=== PATIENT | male | born 1965 | race Caucasian/White ===

== ENCOUNTER 2018-07-13 08:49 | Emergency (ER) | payer OTHER ==
[~2018-07-13] VITALS: Ht 180.3 cm; Wt 99.8 kg
[2018-07-13 09:37] LABS: BASOPHILS ABSOLUTE AUTO 0.07 K/mm3 (0.00-0.23); BASOPHILS PERCENT AUTO 1 % (0-2); EOSINOPHILS ABSOLUTE AUTO 0.26 K/mm3 (0.00-0.68); EOSINOPHILS PERCENT AUTO 4 % (0-6); Hematocrit 44.9 % (37.0-53.0); Hemoglobin 15.3 g/dL (13.5-17.5); IMMATURE GRAN ABSOLUTE AUTO 0.07 K/mm3 (0.00-0.10); IMMATURE GRAN PERCENT AUTO 1 % (0-1); LYMPHOCYTES ABSOLUTE AUTO 2.53 K/mm3 (0.84-5.20); LYMPHOCYTES PERCENT AUTO 35 % (21-46); MONOCYTES ABSOLUTE AUTO 0.73 K/mm3 (0.16-1.47); MONOCYTES PERCENT AUTO 10 % (4-13); Mean Corpuscular HGB 32.1 pg (26.0-34.0); Mean Corpuscular HGB Conc 34.1 g/dL (31.5-36.5); Mean Corpuscular Volume 94 fL (80-100); Mean Platelet Volume 10.2 fL (9.1-12.4); NEUTROPHILS PERCENT AUTO 49 % (41-73); Platelet Count 206 K/mm3 (150-400); RDW Coefficient Variation 12.4 % (11.7-14.2); Red Blood Cell Count 4.77 M/mm3 (4.30-5.90); White Blood Cell Count 7.16 K/mm3 (4.00-11.30)
[2018-07-13 09:52] LABS: Alanine Aminotransfer (ALT/SGP 41 U/L (12-78); Albumin/Globulin Ratio 1.1 (0.8-1.8); Alk Phos 87 U/L (50-136); Anion Gap 11 mmol/L (6-16); Aspartate Aminotrans (AST/SGOT 48 U/L (12-37); Bilirubin, Total 0.6 mg/dL (0.1-1.0); Blood Urea Nitrogen 20 mg/dL (8-24); Bun/Creatinine Ratio 20.3 (12.0-20.0); CO2, Blood 21 mmol/L (21-32); Calcium, Blood 8.9 mg/dL (8.5-10.1); Chloride, Blood 108 mmol/L (98-108); Creatinine, Blood 0.98 mg/dL (0.60-1.20); Globulin, Blood 3.5 g/dL (2.2-4.0); Glomerular Filtration Rate >60 (60-); Glucose, Blood 140 mg/dL (70-99); Potassium, Blood 4.6 mmol/L (3.5-5.5); Sodium, Blood 140 mmol/L (136-145); Total Protein, Blood 7.5 g/dL (6.4-8.2); Troponin I <0.015 ng/mL (0.000-0.040)
== END 2018-07-13 13:01 | disposition short-term general hospital (02) ==
LOC: ER 08:49
PROVIDERS: Physician Assistant
DX: S06.6X9A Traumatic subarachnoid hemorrhage with loss of consciousness of unspecified duration, initial encounter (principal); S02.19XA Other fracture of base of skull, initial encounter for closed fracture; Z87.891 Personal history of nicotine dependence; X58.XXXA Exposure to other specified factors, initial encounter; Y92.513 Shop (commercial) as the place of occurrence of the external cause
CPT/HCPCS: 36415; 70450; 70496; 72125; 80053; 84484; 85025; 93005; 93010; 96374; 96375; 96376; 99285-25; J1170; J2405; J2550; J7030; Q9967

== ENCOUNTER → 2019-05-18 | Outpatient (CLI) | payer OTHER | LOC: EFM RAD 10:41 | DX: M25.562 Pain in left knee (principal) | CPT/HCPCS: 73565 ==

== ENCOUNTER → 2020-04-29 | Outpatient (CLI) | payer OTHER ==
[2020-05-01 14:59] LABS: CORONAVIRUS (COVID19) CSH-NRL Negative (Negative)
== END | disposition home or self-care (01) ==
LOC: LAB SHORT 16:05
PROVIDERS: Physician Assistant Medical
DX: R05 Cough (principal); Z20.828 Contact with and (suspected) exposure to other viral communicable diseases
CPT/HCPCS: U0003

== ENCOUNTER 2020-11-24 07:28 | Day surgery (SDC) | payer OTHER ==
[~2020-11-24] VITALS: Wt 200.0 kg
[~2020-11-24 07:28] MED LIST: ASPI325 PO; ATOR40TA PO; CYAN1000I PO; Crestor40 MG PO; FLOMAX0.4 MG PO; OMEP20ER PO; OXYM.05NI; Ranitidine HCl150 M1 PO; [UNRECOGNIZED DRUG - CODE] PO
[2020-11-24] MEDS ORDERED: MELA3 PO (08:51)
--- NOTE | 2020-11-24 11:50 | NUR ---
PATIENT ARRIVED TO [facility] RECOVERY ROOM A&O. LEFT CHEST PACER IMPLANT SITE SOFT AND NONTENDER. DRESSING DRY AND INTACT. DENIES DISCOMFORT. TOLERATED PROCEDURE WELL.
--- NOTE | 2020-11-24 12:33 | NUR ---
PATIENT ATE LUNCH. STSTES THAT THE PACER SITE IS A "LITTLE" SORE. SITE REMAINS SOFT AND NO SWELLING. DRESSING DRY AND INTACT.
--- NOTE | 2020-11-24 13:48 | NUR ---
PT RETURNED FROM XRAY AFTER 2-V XRAY. LACW PACEMAKER SITE SOFT WITH NO HEMATOMA, NO BLEEDING AND INTACT DRESSING. MID-CHEST LINQ EXPLANT SITE SOFT WITH NO HEMATOMA, NO BLEEDING AND INTACT DRESSING. LINQ SITE IS SORE. CALL LIGHT IN REACH. PT DENIES CHEST PAIN.
--- NOTE | 2020-11-24 16:10 | NUR ---
PT SECOND ROUND OF ANTIBIOTICS COMPLETED. IV DC'D. CATH INTACT. PRESSURE DSG IN PLACE. NADN. L SIDED CHEST WALL REMAINS CLEAR. NO BLEEDING NOTED. VSS. PT DRESSES SELF WITHOUT DIFF. VERBALIZES UNDERSTANDING WRITTEN AND VERBAL ORDERS. PT DC TO HOME VIA WC BY S/O
== END 2020-11-24 16:38 | disposition home or self-care (01) ==
LOC: MHTC 07:28
DX: I44.2 Atrioventricular block, complete (principal); Z45.09 Encounter for adjustment and management of other cardiac device
CPT/HCPCS: 33208; 71046; 76937; 93005; 93010; 99152; 99153; C1781; C1785; C1894; C1898; J0690; J1644; J2250; J3010; J7030; J7040; J7050

== ENCOUNTER 2021-01-07 16:31 | Inpatient (IN) | payer OTHER ==
[~2021-01-07] VITALS: Ht 177.8 cm; Wt 99.8 kg
[~2021-01-07 16:31] MED LIST changes: -ASPI325 PO; +ASPI325EC PO; +MELA3 PO
[2021-01-07 17:22] LABS: BASOPHILS ABSOLUTE AUTO 0.07 K/mm3 (0.00-0.23); BASOPHILS PERCENT AUTO 1 % (0-2); EOSINOPHILS ABSOLUTE AUTO 0.25 K/mm3 (0.00-0.68); EOSINOPHILS PERCENT AUTO 4 % (0-6); Hematocrit 39.4 % (37.0-53.0); Hemoglobin 13.6 g/dL (13.5-17.5); IMMATURE GRAN ABSOLUTE AUTO 0.01 K/mm3 (0.00-0.10); IMMATURE GRAN PERCENT AUTO 0 % (0-1); LYMPHOCYTES ABSOLUTE AUTO 1.62 K/mm3 (0.84-5.20); LYMPHOCYTES PERCENT AUTO 26 % (21-46); MONOCYTES ABSOLUTE AUTO 0.47 K/mm3 (0.16-1.47); MONOCYTES PERCENT AUTO 8 % (4-13); Mean Corpuscular HGB 31.9 pg (26.0-34.0); Mean Corpuscular HGB Conc 34.5 g/dL (31.5-36.5); Mean Corpuscular Volume 93 fL (80-100); Mean Platelet Volume 9.7 fL (9.1-12.4); NEUTROPHILS ABSOLUTE AUTO 3.73 K/mm3 (1.96-9.15); NEUTROPHILS PERCENT AUTO 61 % (41-73); Platelet Count 191 K/mm3 (150-400); RDW Coefficient Variation 12.7 % (11.7-14.2); RDW Standard Deviation 43.4 fL (35.1-46.3); Red Blood Cell Count 4.26 M/mm3 (4.30-5.90); White Blood Cell Count 6.15 K/mm3 (4.00-11.30)
[2021-01-07 18:02] LABS: Alanine Aminotransfer (ALT/SGP 50 U/L (12-78); Albumin, Blood 4.2 g/dL (3.4-5.0); Albumin/Globulin Ratio 1.4 (0.8-1.8); Alk Phos 99 U/L (50-136); Anion Gap 5 mmol/L (6-16); Aspartate Aminotrans (AST/SGOT 37 U/L (12-37); Bilirubin, Total 0.4 mg/dL (0.1-1.0); Blood Urea Nitrogen 23 mg/dL (8-24); CO2, Blood 23 mmol/L (21-32); Chloride, Blood 112 mmol/L (98-108); Glomerular Filtration Rate >60 (60-); Glucose, Blood 150 mg/dL (70-99); Sodium, Blood 140 mmol/L (136-145); Total Protein, Blood 7.2 g/dL (6.4-8.2)
[2021-01-07] MEDS ORDERED: ROSUVASTATIN CA40 MG PO (18:28)
[2021-01-07] MEDS ORDERED: NEURONTIN300 MG PO (18:29)
[2021-01-08 05:54] LABS: BASOPHILS ABSOLUTE AUTO 0.04 K/mm3 (0.00-0.23); BASOPHILS PERCENT AUTO 1 % (0-2); EOSINOPHILS ABSOLUTE AUTO 0.23 K/mm3 (0.00-0.68); EOSINOPHILS PERCENT AUTO 5 % (0-6); Hematocrit 39.2 % (37.0-53.0); Hemoglobin 13.4 g/dL (13.5-17.5); IMMATURE GRAN ABSOLUTE AUTO 0.02 K/mm3 (0.00-0.10); IMMATURE GRAN PERCENT AUTO 0 % (0-1); LYMPHOCYTES ABSOLUTE AUTO 1.44 K/mm3 (0.84-5.20); LYMPHOCYTES PERCENT AUTO 30 % (21-46); MONOCYTES ABSOLUTE AUTO 0.45 K/mm3 (0.16-1.47); MONOCYTES PERCENT AUTO 9 % (4-13); Mean Corpuscular HGB Conc 34.2 g/dL (31.5-36.5); Mean Corpuscular Volume 94 fL (80-100); Mean Platelet Volume 9.7 fL (9.1-12.4); NEUTROPHILS ABSOLUTE AUTO 2.59 K/mm3 (1.96-9.15); NEUTROPHILS PERCENT AUTO 54 % (41-73); Platelet Count 161 K/mm3 (150-400); RDW Coefficient Variation 12.6 % (11.7-14.2); RDW Standard Deviation 43.1 fL (35.1-46.3); Red Blood Cell Count 4.19 M/mm3 (4.30-5.90); White Blood Cell Count 4.77 K/mm3 (4.00-11.30)
[2021-01-08 06:28] LABS: Anion Gap 4 mmol/L (6-16); Blood Urea Nitrogen 22 mg/dL (8-24); Bun/Creatinine Ratio 21.8 (12.0-20.0); CO2, Blood 25 mmol/L (21-32); Calcium, Blood 9.2 mg/dL (8.5-10.1); Chloride, Blood 111 mmol/L (98-108); Creatinine, Blood 1.01 mg/dL (0.60-1.20); Glomerular Filtration Rate >60 (60-); Glucose, Blood 127 mg/dL (70-99); Potassium, Blood 4.1 mmol/L (3.5-5.5); Sodium, Blood 140 mmol/L (136-145)
--- NOTE | 2021-01-08 13:10 | NUR ---
TELEMETRY APPLIED, PER CYLINDER HEAD ASSEMBLER PATIENT IS SINUS KIRBY IN THE 50s.
--- NOTE | 2021-01-08 17:24 | NUR ---
SHIFT SUMMARY NO ACUTE EVENTS THIS SHIFT, VSS AND TOLERATING ROOM AIR WELL. PT IS ALERT AND ORIENTED, COOPERATIVE WITH CARE. ABLE TO AMBULATE IDEPENDENTLY IN ROOM. PT. COMPLAINS OF SOME PAIN AT PACEMAKER INSERTION SITE, REDNESS NOTED AT SITE, DOES NOT WANT ANY MEDICATION FOR PAIN AT THIS TIME. CHEST ULTRASOUND DONE IN ROOM THIS AFTERNOON. PT TAKEN TO HEART CENTER TO CHANGE PACER SETTINGS, PACER SETTINGS NOW AT LOWER THRESHOLD OF 50 BPM PER HEART CENTER NURSE. TELEMETRY IN PLACE.
[2021-01-08 20:12] LABS: Vancomycin, Trough 12.3 ug/mL (5.0-10.0)
[2021-01-08 21:56] LABS: SARS-Cov-2 (COVID-19) PCR, MMC NEGATIVE (NEGATIVE)
[2021-01-09 05:06] LABS: BASOPHILS ABSOLUTE AUTO 0.05 K/mm3 (0.00-0.23); BASOPHILS PERCENT AUTO 1 % (0-2); EOSINOPHILS ABSOLUTE AUTO 0.23 K/mm3 (0.00-0.68); EOSINOPHILS PERCENT AUTO 4 % (0-6); Hematocrit 41.1 % (37.0-53.0); Hemoglobin 13.9 g/dL (13.5-17.5); IMMATURE GRAN ABSOLUTE AUTO 0.03 K/mm3 (0.00-0.10); IMMATURE GRAN PERCENT AUTO 1 % (0-1); LYMPHOCYTES ABSOLUTE AUTO 1.51 K/mm3 (0.84-5.20); LYMPHOCYTES PERCENT AUTO 28 % (21-46); MONOCYTES PERCENT AUTO 9 % (4-13); Mean Corpuscular HGB 31.2 pg (26.0-34.0); Mean Corpuscular HGB Conc 33.8 g/dL (31.5-36.5); Mean Corpuscular Volume 92 fL (80-100); Mean Platelet Volume 9.9 fL (9.1-12.4); NEUTROPHILS ABSOLUTE AUTO 3.12 K/mm3 (1.96-9.15); NEUTROPHILS PERCENT AUTO 57 % (41-73); Platelet Count 177 K/mm3 (150-400); RDW Coefficient Variation 12.3 % (11.7-14.2); RDW Standard Deviation 41.7 fL (35.1-46.3); Red Blood Cell Count 4.46 M/mm3 (4.30-5.90); White Blood Cell Count 5.44 K/mm3 (4.00-11.30)
[2021-01-09 05:46] LABS: C-REACTIVE PROTEIN, EXT RANGE <0.290 mg/dL (0.000-0.300)
[2021-01-09 05:47] LABS: Anion Gap 4 mmol/L (6-16); Blood Urea Nitrogen 21 mg/dL (8-24); Bun/Creatinine Ratio 19.3 (12.0-20.0); CO2, Blood 26 mmol/L (21-32); Calcium, Blood 9.2 mg/dL (8.5-10.1); Chloride, Blood 110 mmol/L (98-108); Creatinine, Blood 1.09 mg/dL (0.60-1.20); Glomerular Filtration Rate >60 (60-); Glucose, Blood 124 mg/dL (70-99); Potassium, Blood 4.4 mmol/L (3.5-5.5); Sodium, Blood 140 mmol/L (136-145)
--- NOTE | 2021-01-09 06:22 | NUR ---
SUMMARY PT HAD ONE EPISODE OF LEFT HAND DISCOMFORT AND SUDDEN ONSET OF CHILLS. EPISODE LAST SHORTLY. PT DENIED CX PAIN, N/V, OR SOB. PT HAS SLEPT WELL T/O SHIFT. PT CURRENTLY SLEEPING IN NO DISTRESS. CALL LIGHT IN REACH.
--- NOTE | 2021-01-09 17:55 | NUR ---
SHIFT SUMMARY NO ACUTE CHANGES NOTED TO PT THIS SHIFT. PT AAOX4, ABLE TO MAKE NEEDS KNOWN, PLEASANT AND COOPERATIVE TO CARE. MEDICATED FOR MILD HEADACHE THIS SHIFT, SEE EMAR. NO C/O CP, SOB, OR N&V. PT INDEPENDENT IN THE ROOM. BED AT LOWEST POSITION. CALL LIGHT WITHIN REACH.
--- NOTE | 2021-01-10 06:50 | NUR ---
SHIFT SUMMARY PT IS A 55 Y/O MALE, ADMITTED FOR A PACEMAKER INFECTION. HE IS A&O X 4, INDEPENDENT IN THE ROOM. NO C/O ACUTE PAIN, NAUSEA OR SOB. TELE SHOWED SB IN THE 50S. VITAL SIGNS STABLE. NO ACUTE CHANGES IN PT CONDITION NOTED DURING THE NIGHT. WILL CONTINUE TO MONITOR AND TREAT PER EMAR UNTIL HAND OFF TO DAY SHIFT RN.
[2021-01-10 08:28] LABS: BASOPHILS ABSOLUTE AUTO 0.04 K/mm3 (0.00-0.23); BASOPHILS PERCENT AUTO 1 % (0-2); EOSINOPHILS ABSOLUTE AUTO 0.23 K/mm3 (0.00-0.68); EOSINOPHILS PERCENT AUTO 4 % (0-6); Hematocrit 41.5 % (37.0-53.0); Hemoglobin 14.4 g/dL (13.5-17.5); IMMATURE GRAN ABSOLUTE AUTO 0.02 K/mm3 (0.00-0.10); IMMATURE GRAN PERCENT AUTO 0 % (0-1); LYMPHOCYTES ABSOLUTE AUTO 1.24 K/mm3 (0.84-5.20); LYMPHOCYTES PERCENT AUTO 23 % (21-46); MONOCYTES ABSOLUTE AUTO 0.43 K/mm3 (0.16-1.47); MONOCYTES PERCENT AUTO 8 % (4-13); Mean Corpuscular HGB 31.6 pg (26.0-34.0); Mean Corpuscular HGB Conc 34.7 g/dL (31.5-36.5); Mean Corpuscular Volume 91 fL (80-100); Mean Platelet Volume 9.7 fL (9.1-12.4); NEUTROPHILS ABSOLUTE AUTO 3.39 K/mm3 (1.96-9.15); NEUTROPHILS PERCENT AUTO 63 % (41-73); Platelet Count 178 K/mm3 (150-400); RDW Coefficient Variation 12.2 % (11.7-14.2); RDW Standard Deviation 40.7 fL (35.1-46.3); Red Blood Cell Count 4.56 M/mm3 (4.30-5.90); White Blood Cell Count 5.35 K/mm3 (4.00-11.30)
[2021-01-10 08:44] LABS: Anion Gap 4 mmol/L (6-16); Blood Urea Nitrogen 20 mg/dL (8-24); CO2, Blood 25 mmol/L (21-32); Calcium, Blood 9.2 mg/dL (8.5-10.1); Chloride, Blood 110 mmol/L (98-108); Creatinine, Blood 1.05 mg/dL (0.60-1.20); Glomerular Filtration Rate >60 (60-); Glucose, Blood 123 mg/dL (70-99); Potassium, Blood 4.2 mmol/L (3.5-5.5); Sodium, Blood 139 mmol/L (136-145); Vancomycin, Trough 19.1 ug/mL (5.0-10.0)
--- NOTE | 2021-01-10 09:00 | NUR ---
PT WAS HAVING CP THIS AM 07/23; HE DESCRIBED IT "UNCOMFORTABLE" CALLED HOSPITALIST WHICH THEN ORDERED TO CALL THE SPRING MAKER, SPRING MAKER CAME IN THE ROOM AND AT BEDSIDE TO ASSESS THE PT. PT RECEIVED [id number] AND STATED FELT BETTER. PT WILL HAVE A SURGERY IN COUPLE HOURS OF REMOVAL OF THE PACEMAKER.
--- NOTE | 2021-01-10 11:18 | NUR ---
PT WENT ON PROCEDURE; UPDATED
--- NOTE | 2021-01-10 12:08 | NUR ---
REPORT GIVEN TO RELOCATION MANAGER.
--- NOTE | 2021-01-10 13:18 | NUR ---
PT TRANSFER TO PCU POST PACER POCKET WASH OUT. PT ALERT AND ORIENTED X4. ON ROOM AIR SATING ABOVE 95%. TELE SHOWING PACED AT 53. DENIES CHEST PAIN/PRESSURE. VITAL SIGNS STABLE. POST OP VITALS IN PLACE. DRESSING TO LEFT CHEST WALL CLEAN/DRY/INTACT. DENIES PAIN AT SIGHT AND OVERALL. BOWEL TONES PRESENT. PATIENT ABLE TO EAT LUNCH. ORIENTED TO UNIT AND CALL LIGHT. WILL CONTINUE TO MONITOR.
[2021-01-10] MEDS ORDERED: ACET325 PO (16:16)
[2021-01-10] MEDS ORDERED: Norco 5-325 Ta1 EACH PO (16:17)
[2021-01-10] MEDS ORDERED: MIRALAX17 GM PO (16:18)
[2021-01-10] MEDS ORDERED: SULTRIDS PO (16:19)
--- NOTE | 2021-01-10 16:51 | NUR ---
DISCHARGE: NO ACUTE CHANGES. VITAL SIGNS STABLE. POST PACER PRECAUTIONS. DISCHARGE INSTRUCTIONS REVIEWED AND QUESTIONS ANSWERED. MEDS CALLED INTO PHARMACY. IV REMOVAL WNL. PT LEFT UNIT WITH WITH ALL PERSONAL BELONGINGS.
== END 2021-01-10 16:30 | disposition home or self-care (01) | DRG 858 ==
LOC: ER 16:31 → ERHOLD 21:18 → MEDS 21:18 → PCU 01-10 12:18
PROVIDERS: Family Medicine; Internal Medicine Cardiovascular Disease; Physician Assistant; ADMIT Internal Medicine
PROC: 0JWT0PZ Revision of Cardiac Rhythm Related Device in Trunk Subcutaneous Tissue and Fascia, Open Approach (ICD-10-PCS; principal; 2021-01-10)
DX: T81.40XA Infection following a procedure, unspecified, initial encounter (principal); Y84.0 Cardiac catheterization as the cause of abnormal reaction of the patient, or of later complication, without mention of misadventure at the time of the procedure; N40.0 Benign prostatic hyperplasia without lower urinary tract symptoms; K21.9 Gastro-esophageal reflux disease without esophagitis; F41.9 Anxiety disorder, unspecified; E78.5 Hyperlipidemia, unspecified; Z20.822 Contact with and (suspected) exposure to COVID-19; I10 Essential (primary) hypertension; I49.5 Sick sinus syndrome; G62.9 Polyneuropathy, unspecified; M54.42 Lumbago with sciatica, left side; L08.89 Other specified local infections of the skin and subcutaneous tissue; M54.12 Radiculopathy, cervical region; M54.41 Lumbago with sciatica, right side; E66.9 Obesity, unspecified; G89.4 Chronic pain syndrome; Z87.891 Personal history of nicotine dependence; Z79.82 Long term (current) use of aspirin; Z79.899 Other long term (current) drug therapy; Z98.890 Other specified postprocedural states; Z68.31 Body mass index [BMI] 31.0-31.9, adult
CPT/HCPCS: 36415; 71045; 76604; 80048; 80053; 80202; 83605; 85025; 85651; 86140; 86141; 87040; 93005; 93010; 93280; 96365; 96366; 96375; 99152; 99153; 99284-25; A9270; C1781; J0690; J1580; J2250; J3010; J3370; J7030; J7040; J7050; U0004

== ENCOUNTER 2021-01-11 12:35 | Emergency (ER) | payer OTHER ==
[~2021-01-11] VITALS: Ht 177.8 cm; Wt 99.8 kg
[~2021-01-11 12:35] MED LIST changes: +ACET325 PO; +MIRALAX17 GM PO; +NEURONTIN300 MG PO; +Norco 5-325 Ta1 EACH PO; +ROSUVASTATIN CA40 MG PO; +SULTRIDS PO
[2021-01-11 13:00] LABS: BASOPHILS ABSOLUTE AUTO 0.04 K/mm3 (0.00-0.23); BASOPHILS PERCENT AUTO 1 % (0-2); EOSINOPHILS ABSOLUTE AUTO 0.17 K/mm3 (0.00-0.68); EOSINOPHILS PERCENT AUTO 3 % (0-6); Hematocrit 36.9 % (37.0-53.0); Hemoglobin 12.9 g/dL (13.5-17.5); IMMATURE GRAN ABSOLUTE AUTO 0.03 K/mm3 (0.00-0.10); IMMATURE GRAN PERCENT AUTO 0 % (0-1); LYMPHOCYTES ABSOLUTE AUTO 1.45 K/mm3 (0.84-5.20); LYMPHOCYTES PERCENT AUTO 21 % (21-46); MONOCYTES ABSOLUTE AUTO 0.54 K/mm3 (0.16-1.47); MONOCYTES PERCENT AUTO 8 % (4-13); Mean Corpuscular HGB 31.6 pg (26.0-34.0); Mean Corpuscular Volume 90 fL (80-100); Mean Platelet Volume 9.4 fL (9.1-12.4); NEUTROPHILS ABSOLUTE AUTO 4.63 K/mm3 (1.96-9.15); NEUTROPHILS PERCENT AUTO 68 % (41-73); Platelet Count 152 K/mm3 (150-400); RDW Coefficient Variation 12.3 % (11.7-14.2); RDW Standard Deviation 40.6 fL (35.1-46.3); Red Blood Cell Count 4.08 M/mm3 (4.30-5.90); White Blood Cell Count 6.86 K/mm3 (4.00-11.30)
[2021-01-11 13:13] LABS: Albumin, Blood 3.6 g/dL (3.4-5.0); Albumin/Globulin Ratio 1.2 (0.8-1.8); Bilirubin, Total 0.4 mg/dL (0.1-1.0); Bun/Creatinine Ratio 17.2 (12.0-20.0); Calcium, Blood 8.5 mg/dL (8.5-10.1); Creatinine, Blood 1.34 mg/dL (0.60-1.20); Globulin, Blood 2.9 g/dL (2.2-4.0); Potassium, Blood 3.7 mmol/L (3.5-5.5); Total Protein, Blood 6.5 g/dL (6.4-8.2)
== END 2021-01-11 16:04 | disposition home or self-care (01) ==
LOC: ER 12:35
PROVIDERS: Emergency Medicine
DX: R55 Syncope and collapse (principal); Z79.82 Long term (current) use of aspirin; Z79.899 Other long term (current) drug therapy
CPT/HCPCS: 80053; 84484; 85025; 93005; 93010; 96360; 96361; 99284-25; J7030

== ENCOUNTER 2021-09-09 08:42 | Day surgery (SDC) | payer OTHER ==
[~2021-09-09] VITALS: Ht 177.8 cm; Wt 100.2 kg
== END 2021-09-09 12:56 | disposition home or self-care (01) ==
LOC: ORSCSDS 08:42
PROVIDERS: Orthopaedic Surgery
PROC: 01X40Z4 Transfer Ulnar Nerve to Ulnar Nerve, Open Approach (ICD-10-PCS; principal; 2021-09-09 10:15)
PROC: 01N50ZZ Release Median Nerve, Open Approach (ICD-10-PCS; principal; 2021-09-09 10:15)
PROC: 0LN70ZZ Release Right Hand Tendon, Open Approach (ICD-10-PCS; principal; 2021-09-09 10:15)
DX: G56.03 Carpal tunnel syndrome, bilateral upper limbs (principal); G56.23 Lesion of ulnar nerve, bilateral upper limbs; M65.341 Trigger finger, right ring finger; G62.9 Polyneuropathy, unspecified; Z95.0 Presence of cardiac pacemaker; E78.5 Hyperlipidemia, unspecified; F41.9 Anxiety disorder, unspecified; K21.9 Gastro-esophageal reflux disease without esophagitis; Z79.899 Other long term (current) drug therapy; Z87.891 Personal history of nicotine dependence
CPT/HCPCS: A9270; J0171; J0690; J1100; J2250; J2370; J2405; J2704; J3010; J7120

== ENCOUNTER → 2022-08-20 | Outpatient (CLI) | payer OTHER | END | disposition home or self-care (01) | LOC: LAB 08:15 → PLD 08:15 → LAB SHORT 08:15 | DX: C44.622 Squamous cell carcinoma of skin of right upper limb, including shoulder (principal) | CPT/HCPCS: 88305 ==